=== PATIENT | male | born 1945 | race Two or more races ===

== ENCOUNTER 2016-09-24 16:25 | Inpatient (IN) | payer MEDICARE ==
[~2016-09-24] VITALS: Ht 195.6 cm; Wt 127.0 kg
--- NOTE | 2016-09-24 16:30 | NUR ---
pt [facility] to er bed 10. woke up today at 0830 c/o right sided weakness, slurring of speech. pt states he was doing ok yesterday. denies hx of stroke. hx of hypertension and diabetes. gowned and placed on monitor. stable vitals. awaiting md stokes.
--- NOTE | 2016-09-24 16:32 | NUR ---
iv line started blood araseli and sent to lab.
--- NOTE | 2016-09-24 16:34 | NUR ---
blood sugar 430. ermd aware.
--- NOTE | 2016-09-24 16:44 | NUR ---
dr luong a bedside for eval.
[2016-09-24] MEDS ORDERED: INSULIN REGULAR, HUMAN 100 UNIT/ML 10 ML VIAL ONE (16:56)
[2016-09-24] MEDS ORDERED: IV SET PRIMARY 1 EA INFUS.SET MC ONE ×2 (16:56→18:02)
[2016-09-24] MEDS ORDERED: IV NS 0.9% 1,000 ML ONE ×2 (16:56→18:02)
[2016-09-24] MEDS ORDERED: IV NS 0.9% 1,000 ML BAG IV ONE ×2 (17:00→18:00)
[2016-09-24] MEDS ORDERED: INSULIN REGULAR, HUMAN 100 UNIT/ML 10 ML VIAL IV ONE (17:00)
[2016-09-24 17:01] LABS: BASOPHILS % (AUTO) 0.3 % (0.0-2.0); EOSINOPHILS # (AUTO) 0.1 /CMM (0.0-0.7); EOSINOPHILS % (AUTO) 0.5 % (0.0-6.0); HEMATOCRIT 50 % (39-51); HEMOGLOBIN 16.9 g/dL (13.5-17.5); LYMPHOCYTES # (AUTO) 1.3 /CMM (0.8-4.8); LYMPHOCYTES % (AUTO) 10.9 % (20.0-44.0); MEAN CORPUSCULAR HEMOGLOBIN 29 PG (26.0-33.0); MEAN CORPUSCULAR HGB CONC 34 g/dl (31.0-36.0); MEAN CORPUSCULAR VOLUME 85 fL (80-96); MONOCYTES # (AUTO) 0.6 /CMM (0.1-1.30); MONOCYTES % (AUTO) 4.5 % (2.0-12.0); NEUTROPHILS # (AUTO) 10.3 /CMM (1.8-8.9); NEUTROPHILS % (AUTO) 83.8 % (43.0-81.0); PLATELET COUNT (AUTO) 313 /CMM (150-450); RDW COEFFICIENT OF VARIATION 12.5 (11.5-15.0); RED BLOOD CELL COUNT(AUTO) 5.89 MIL/uL (4.5-6.0); WHITE BLOOD COUNT (AUTO) 12.3 K/uL (4.3-11.0)
--- NOTE | 2016-09-24 17:14 | NUR ---
radiology at bedside for chest xray.
[2016-09-24 17:15] LABS: CALCIUM, SERUM 8.8 mg/dL (8.5-10.1); CARBON DIOXIDE 20 mmol/L (21-32); CHLORIDE 98 mmol/L (98-107); CREATININE 1.7 mg/dL (0.6-1.3); POTASSIUM 4.4 mmol/L (3.5-5.1); SODIUM SERUM 134 mmol/L (136-145); UREA NITROGEN, BLOOD 14 mg/dL (7-18)
[2016-09-24 17:19] LABS: GLUCOSE 472 mg/dL (74-106)
[2016-09-24 17:20] LABS: TROPONIN I < 0.017 ng/mL (0.00-0.056)
--- NOTE | 2016-09-24 17:30 | NUR ---
pt to radiology for head ct scan via [facility].
--- NOTE | 2016-09-24 17:41 | NUR ---
DR. CLARK WANTS TO WAIT FOR CT HEAD W/O RESULTS BEFORE GOING TO CTA BECAUSE OF PT'S HIGH CREATININE.
[2016-09-24 17:43] LABS: INR 0.96 (0.87-1.13); PROTHROMBIN TIME 10.2 SECS (9.5-12.7)
[2016-09-24] MEDS ORDERED: IV NS 0.9% 250 ML IV ONE (17:53)
[2016-09-24] MEDS ORDERED: IOHEXOL-350 100 ML VIAL IV ONE (17:54)
[2016-09-24] MEDS ORDERED: CT SWABBABLE VALVE TRANS SET 1 EA INFUS.SET MC ONE (17:54)
[2016-09-24] MEDS ORDERED: ASPIRIN 325 MG TABLET ONE (18:34)
--- NOTE | 2016-09-24 18:35 | NUR ---
aspirin 325 mg given po per ermd verbal order.
[2016-09-24] MEDS ORDERED: ASPIRIN 81 MG TAB.CHEW PO ONE (19:00)
[2016-09-24] MEDS ORDERED: ASPIRIN 300 MG/SUPP.RECT RC ONE (19:00)
--- NOTE | 2016-09-24 19:04 | NUR ---
YAMILA WATTS CATECHIST SALES PROMOTION DIRECTOR FOR [employer] MADE AWARE OF PT AND SPOKE WITH DR CLARK
[2016-09-24 19:45] LABS: APPEARANCE,URINE Clear (CLEAR); BILIRUBIN,URINE Negative (NEGATIVE); BLOOD, URINE Trace-lysed Ery/uL (NEGATIVE); COLOR,URINE Yellow (YELLOW); KETONES,URINE Trace (NEGATIVE); LEUKOCYTE ESTERASE ,URINE Small (NEGATIVE); NITRITE, URINE Negative (NEGATIVE); PH,URINE 5.5 (5.0-8.0); PROTEIN,URINE 100 mg/dl (NEGATIVE); UGLUCOSE 500 MG/DL mg/dL (NEGATIVE); UROBILINOGEN,URINE 0.2 EU/dL (0.2)
--- NOTE | 2016-09-24 19:50 | NUR ---
TELE 325-2
[2016-09-24] MEDS ORDERED: ZOLPIDEM TARTRATE 5 MG TABLET PO PRN (20:00)
[2016-09-24] MEDS ORDERED: DEXTROSE 50%-WATER 50 ML DISP.SYRIN IV PRN (20:00)
[2016-09-24 20:02] LABS: BACTERIA,URINE 2+ /HPF (None Seen); SQUAMOUS EPITHELIAL CELL,UR Few /HPF (None Seen)
--- NOTE | 2016-09-24 20:04 | NUR ---
report given to pallavi. pt awaiing transfer to floor.
--- NOTE | 2016-09-24 20:30 | NUR ---
APPLICATION COUNSELOR NOTES Admitted patient to the unit in no apparent distress. Patient is alert, oriented x4, able to make needs known. Patient noted to have right side weakness, noted with right facial paralysis.No SOB noted, breathing regular and non labored. No c/o pain at this time. Routine admission done. all needs attended Will continue to monitor.
[2016-09-24 21:00] VITALS: BP 159/92
[2016-09-24] MEDS ORDERED: BLOOD SUGAR DIAGNOSTIC 1 EACH STRIP IN SCH (22:00)
[2016-09-24] MEDS: BLOOD SUGAR DIAGNOSTIC 1 EACH STRIP VI SCH (22:00)
[2016-09-24] MEDS ORDERED: CEFTRIAXONE 1 G VIAL ONE (22:44)
[2016-09-24] MEDS ORDERED: SECONDARY IV SET 1 EA INFUS.SET MC ONE (22:45)
[2016-09-24] MEDS ORDERED: IV D5W 50 ML IV ONE (22:45)
[2016-09-24] MEDS ORDERED: ZOLPIDEM TARTRATE 5 MG TABLET ONE (23:46)
[2016-09-24] MEDS ORDERED: ATORVASTATIN 40 MG TABLET ONE (23:47)
[2016-09-24] MEDS ORDERED: IV SET PRIMARY PUMP SET 1 EA INFUS.SET MC ONE (23:52)
[2016-09-25] MEDS: IV NS 0.9% 1,000 ML IV SCH ×2 (00:03→14:53)
[2016-09-25] MEDS: HEPARIN SODIUM, PORCINE 5000 UNITS/1 ML VIAL SQ SCH ×3 (00:04→21:22)
[2016-09-25] MEDS: ATORVASTATIN 40 MG TABLET PO SCH ×2 (00:05→21:10)
[2016-09-25] MEDS: CEFTRIAXONE 1 G in IV D5W 50 ML IV SCH ×2 (00:16→21:10)
[2016-09-25] MEDS: *INSULIN REGULAR(HUMULIN R)HUM 100 UNIT/ML VIAL SQ PRN ×2 (00:54→21:17)
[2016-09-25 01:20] VITALS: BP 145/86
[2016-09-25 04:35] VITALS: BP 128/73
[2016-09-25] MEDS: BLOOD SUGAR DIAGNOSTIC 1 EACH STRIP IN SCH ×2 (06:00)
--- NOTE | 2016-09-25 06:17 | NUR ---
RN CLOSING NOTES Patient slept comfortably during shift, Repositioned as scheduled. Due meds given as ordered. Blood sugar checked done at 0600, 272 result, as DIRECTOR EXPORT aRfi order no need to call him. All needss attended. Will continue to monitor.
[2016-09-25 06:51] LABS: BASOPHILS % (AUTO) 0.2 % (0.0-2.0); EOSINOPHILS # (AUTO) 0.1 /CMM (0.0-0.7); EOSINOPHILS % (AUTO) 1.2 % (0.0-6.0); HEMATOCRIT 46 % (39-51); HEMOGLOBIN 15.9 g/dL (13.5-17.5); LYMPHOCYTES # (AUTO) 2.7 /CMM (0.8-4.8); LYMPHOCYTES % (AUTO) 23.9 % (20.0-44.0); MEAN CORPUSCULAR HEMOGLOBIN 29 PG (26.0-33.0); MEAN CORPUSCULAR HGB CONC 34 g/dl (31.0-36.0); MEAN CORPUSCULAR VOLUME 85 fL (80-96); MONOCYTES # (AUTO) 0.8 /CMM (0.1-1.30); MONOCYTES % (AUTO) 7.1 % (2.0-12.0); NEUTROPHILS # (AUTO) 7.7 /CMM (1.8-8.9); NEUTROPHILS % (AUTO) 67.6 % (43.0-81.0); PLATELET COUNT (AUTO) 284 /CMM (150-450); RDW COEFFICIENT OF VARIATION 12.6 (11.5-15.0); RED BLOOD CELL COUNT(AUTO) 5.48 MIL/uL (4.5-6.0); WHITE BLOOD COUNT (AUTO) 11.4 K/uL (4.3-11.0)
[2016-09-25 06:57] LABS: CALCIUM, SERUM 8.2 mg/dL (8.5-10.1); CARBON DIOXIDE 26 mmol/L (21-32); CHLORIDE 103 mmol/L (98-107); CREATININE 1.1 mg/dL (0.6-1.3); GLUCOSE 246 mg/dL (74-106); POTASSIUM 3.5 mmol/L (3.5-5.1); SODIUM SERUM 139 mmol/L (136-145); UREA NITROGEN, BLOOD 9 mg/dL (7-18)
[2016-09-25 06:58] LABS: INR 1.11 (0.87-1.13); PROTHROMBIN TIME 11.9 SECS (9.5-12.7)
--- NOTE | 2016-09-25 07:05 | NUR ---
RECEIVED PT IN BED, SLEEPING INTERMITTENTLY, A/OX4. PT HAS NO COMPLAINTS OF PAIN OR SIGNS OF DISTRESS. IV ON LFA PATENT AND INTACT. BED IS LOW AND LOCKED, SIDE RAILS UP X2 AND CALL LIGHT IS IN REACH. WILL CONTINUE TO MONITOR.
[2016-09-25 07:10] LABS: CHOLESTEROL 208 mg/dL (<200); HDL CHOLESTEROL 32 mg/dL (40-60); LDL 136 mg/dL (0-99); THYROID STIMULATING HORMONE 1.296 uIU/mL (0.358-3.74); TRIGLYCERIDES 251 mg/dL (30-150)
[2016-09-25 07:29] VITALS: BP 142/55
[2016-09-25 08:00] VITALS: BP 142/55
[2016-09-25] MEDS: BLOOD SUGAR DIAGNOSTIC 1 EACH STRIP VI SCH ×4 (08:10→21:09)
[2016-09-25] MEDS: ASPIRIN 325 MG TABLET PO SCH (08:20)
[2016-09-25] MEDS: PANTOPRAZOLE 40 MG TABLET.DR PO SCH (08:20)
[2016-09-25] MEDS: INSULIN REGULAR, HUMAN 100 UNIT/ML 3 ML VIAL SQ PRN ×3 (09:27→18:23)
[2016-09-25 10:53] LABS: ALBUMIN 3.3 g/dL (3.4-5.0); BILIRUBIN,DIRECT 0.1 mg/dL (0.0-0.2); BILIRUBIN,TOTAL 0.6 mg/dL (0.2-1.0); TOTAL PROTEIN, SERUM 6.6 g/dL (6.4-8.2)
--- NOTE | 2016-09-25 11:13 | NUR ---
WOUND CARE: PT NOT SEEN YET FOR SKIN ASSESSMENT DUE TO PT OFF UNIT AT THIS TIME.
--- NOTE | 2016-09-25 12:10 | NUR ---
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 DR. VALENTINE WAS NOTIFIED.
[2016-09-25 16:00] VITALS: BP 141/84
--- NOTE | 2016-09-25 16:04 | NUR ---
cooler room worker met with patient a bedside. Patient was cooperative and pleasant. Patient was oriented to time, place, self, and situation. Patient stated that he is homeless and lives in his van. cooler room worker asked patient if he wanted [facility] placement and patient refused chcf placement and stated that he would like to be discharged back to his van that is [address] on [address] between [place] and [facility]. Per patient he receives SSI ($800/month). Per patient, he is going to be leaving [place] soon and moving to the [facility]. Patient stated that he does not have any family and did not want to provide an emergency contact. Per patient, he has no hx of drug or alcohol abuse. Patient denied suicidal and homicidal ideations. Patient denied visual and auditory hallucinations. Per patient, he does not have a hx of psychiatric hospitalizations. cooler room worker informed patient that she was available if needed.
--- NOTE | 2016-09-25 16:09 | NUR ---
PER RD RECOMMENDATION, TO ADD CARDIAC DIET AND CHANGE CONTROL CARBS TO 75 G. PT HAD EPISODE OF [facility] X1, NOTIFIED DR. NUNO. ORDERED C-DIFF STOOL. WILL COLLECT.
--- NOTE | 2016-09-25 19:04 | NUR ---
PT IS IN SEMIFOWLERS POSITION IN BED, AWAKE. PT COMPLAINS OF NO PAIN AND SHOWS NO SIGNS OF DISTRESS. IV ON LFA RUNNING NS AT 75 ML/HR. ALL MEDS WERE GIVEN ORDERED. BED IS IN LOW AND LOCKED POSITION, SIDE RAILS UP X2, AND CALL LIGHT IS IN REACH. WILL ENDORSE TO BRANCH MECHANIC RN FOR CONTINUITY OF CARE.
--- NOTE | 2016-09-25 19:30 | NUR ---
RECEIVED PATIENT IN BED AWAKE, AO X 4, ABLE TO MAKE NEEDS KNOWN. NO ACUTE DISTRESS NOTED. DENIES ANY PAIN AT THIS TIME. NO SYMPTOMS OF HYPER/HYPOGLYCEMIA. RIGHT SIDED WEAKNESS NOTED. IV SITE PATENT, INTACT; IVF INFUSING ORDERED. ON LOW BED WITH BILATERAL UPPER SIDE RAILS UP. CALL LIGHT WITHIN EASY REACH. WILL CONTINUE TO MONITOR.
[2016-09-25 20:00] VITALS: BP_SYST 120; BP_SYST 142; BP_DIAS 68; BP_DIAS 74
[2016-09-26] MEDS ORDERED: HYDROCODONE/APAP 5/325MG 1 EACH TABLET ONE (00:26)
[2016-09-26] MEDS: HYDROCODONE/APAP 5/325MG 1 EACH TABLET PO PRN ×2 (00:31→21:02)
[2016-09-26] MEDS: IV NS 0.9% 1,000 ML IV SCH ×2 (04:52→21:03)
--- NOTE | 2016-09-26 06:05 | NUR ---
PATIENT SLEEP, EASILY AROUSABLE. RESPIRATIONS EVEN. NO SIGNS OF PAIN NOTED. DUE MEDS GIVEN WITH NO ASE NOTED. NEEDS ATTENDED. SAFETY PRECAUTIONS AND COMFORT MEASURES IN PLACE. WILL GIVE REPORT TO DAY SHIFT FOR CONTINUITY OF CARE.
[2016-09-26] MEDS: BLOOD SUGAR DIAGNOSTIC 1 EACH STRIP VI SCH ×4 (06:32→22:23)
[2016-09-26] MEDS: INSULIN REGULAR, HUMAN 100 UNIT/ML 3 ML VIAL SQ PRN ×2 (06:34→12:28)
[2016-09-26] MEDS: PANTOPRAZOLE 40 MG TABLET.DR PO SCH (06:36)
[2016-09-26 08:00] VITALS: BP 143/56
--- NOTE | 2016-09-26 08:00 | NUR ---
RN OPENING NOTES RECEIVED PATIENT IN BED AWAKE, AO X 4, ABLE TO MAKE NEEDS KNOWN. NO ACUTE DISTRESS NOTED. DENIES ANY PAIN AT THIS TIME. RIGHT SIDED WEAKNESS NOTED. IV SITE PATENT, INTACT; IVF INFUSING ORDERED. BED IN THE LOWEST POSITION WITH THE SIDE RAILS UP X2. SCD'S ON BILATERALLY. CALL LIGHT WITHIN REACH. WILL CONTINUE TO MONITOR.
[2016-09-26] MEDS: ASPIRIN 325 MG TABLET PO SCH (09:47)
[2016-09-26] MEDS: HEPARIN SODIUM, PORCINE 5000 UNITS/1 ML VIAL SQ SCH ×2 (09:48→21:03)
--- NOTE | 2016-09-26 11:10 | NUR ---
sex worker or escort met with patient at bedside. Patient is still refusing placement and stated that he wants to go back to his van. Patient wants to be discharged to [address] [place] [address] [address] [place] [address]. Via taxi. sex worker or escort provided patient with resources to homeless shelters, Showers and hot meals, and mental health services. Patient signed the homeless waiver form.
--- NOTE | 2016-09-26 12:30 | NUR ---
TRAPEZE PLACED ON PATIENT BED FOR BETTER INDEPENDENT MOBILITY IN BED. PATIENT RIGHT SIDE MOBILITY IMPROVING PER PHYSICAL THERAPIST.
[2016-09-26 16:00] VITALS: BP 115/73
[2016-09-26] MEDS: *INSULIN REGULAR(HUMULIN R)HUM 100 UNIT/ML VIAL SQ PRN ×2 (17:20→22:26)
--- NOTE | 2016-09-26 19:09 | NUR ---
per patient will need short term SNF placement for rehab. Spoke with patient, he would like to go to [facility] for short term where Cain Teixeira DNP can follow him. Faxed referral to [facility] [phone] . Addendum: 09/26/16 at 1909 by SHERRY STUART RN Amended: Links added.
[2016-09-26 20:00] VITALS: BP 134/83
--- NOTE | 2016-09-26 20:00 | NUR ---
RECEIVED PATIENT IN BED, ALERT AND ORIENTED X3, CALM, NO SOB, TOLERATING ROOM AIR, SP02 AT ROOM AIR 98%, NOT COMPLAINING OF PAIN AT THIS TIME, PER PATIENT WILL ASK FOR PAIN MEDICATION WHEN NEEDED. LUNG SOUNDS ARE CLEAR, ABDOMEN FIRM, ACTIVE BOWEL SOUNDS, LEFT FOREARM PERIPHERAL LINE IS PATENT AND INFUSING WELL, ABLE TO USE TRAPEZE FOR BED MOBILITY, WITH RIGHT SIDE WEAKNESS. NO DIFFICULTY SWALLOWING, UNABLE TO AMBULATE, BEDREST. REPOSITIONED FOR COMFORT. KEPT SAFE AND COMFORTABLE, CALL LIGHT WITHIN REACH.
[2016-09-26] MEDS: CEFTRIAXONE 1 G in IV D5W 50 ML IV SCH (22:22)
[2016-09-26] MEDS: ATORVASTATIN 40 MG TABLET PO SCH (22:22)
[2016-09-27] MEDS: BLOOD SUGAR DIAGNOSTIC 1 EACH STRIP VI SCH ×3 (06:20→16:58)
--- NOTE | 2016-09-27 06:30 | NUR ---
PATIENT IN BED, ALERT AND AWAKE, NO RESPIRATORY DISTRESS, NO COMPLAIN OF PAIN AT THIS TIME, WITH RIGHT SIDED WEAKNESS, NO ADVERSE CHANGE OF CONDITION DURING SHIFT, SLEPT FOR 5 HOURS. ALL DUE MEDICATIONS GIVEN, CALL LIGHT WITHIN REACH.
[2016-09-27] MEDS: INSULIN REGULAR, HUMAN 100 UNIT/ML 3 ML VIAL SQ PRN ×3 (06:32→16:57)
[2016-09-27 06:59] LABS: BASOPHILS # (AUTO) 0.1 /CMM (0.0-0.2); BASOPHILS % (AUTO) 0.6 % (0.0-2.0); EOSINOPHILS # (AUTO) 0.2 /CMM (0.0-0.7); EOSINOPHILS % (AUTO) 2.1 % (0.0-6.0); HEMATOCRIT 46 % (39-51); HEMOGLOBIN 15.6 g/dL (13.5-17.5); LYMPHOCYTES % (AUTO) 29.6 % (20.0-44.0); MEAN CORPUSCULAR HEMOGLOBIN 29 PG (26.0-33.0); MEAN CORPUSCULAR HGB CONC 34 g/dl (31.0-36.0); MEAN CORPUSCULAR VOLUME 85 fL (80-96); MONOCYTES # (AUTO) 0.7 /CMM (0.1-1.30); MONOCYTES % (AUTO) 6.5 % (2.0-12.0); NEUTROPHILS # (AUTO) 6.2 /CMM (1.8-8.9); NEUTROPHILS % (AUTO) 61.2 % (43.0-81.0); PLATELET COUNT (AUTO) 260 /CMM (150-450); RDW COEFFICIENT OF VARIATION 12.8 (11.5-15.0); RED BLOOD CELL COUNT(AUTO) 5.38 MIL/uL (4.5-6.0); WHITE BLOOD COUNT (AUTO) 10.2 K/uL (4.3-11.0)
[2016-09-27 07:35] LABS: CALCIUM, SERUM 8.4 mg/dL (8.5-10.1); CARBON DIOXIDE 23 mmol/L (21-32); CHLORIDE 104 mmol/L (98-107); CREATININE 1.1 mg/dL (0.6-1.3); GLUCOSE 262 mg/dL (74-106); MAGNESIUM 1.5 mg/dL (1.8-2.4); PHOSPHORUS 3.5 mg/dL (2.5-4.9); POTASSIUM 4.1 mmol/L (3.5-5.1); SODIUM SERUM 138 mmol/L (136-145); UREA NITROGEN, BLOOD 14 mg/dL (7-18)
[2016-09-27 08:00] VITALS: BP 114/81
[2016-09-27] MEDS: ASPIRIN 325 MG TABLET PO SCH (08:07)
[2016-09-27] MEDS: PANTOPRAZOLE 40 MG TABLET.DR PO SCH (08:07)
[2016-09-27] MEDS: HEPARIN SODIUM, PORCINE 5000 UNITS/1 ML VIAL SQ SCH (08:08)
--- NOTE | 2016-09-27 08:46 | NUR ---
MS RN INITIAL NOTES REPORT RECEIVED AT THE BEDSIDE. PATIENT IS SLEEPING. NO SOB OR DISTRESS NOTED AT THIS TIME. PATIENT DOES NOT APPEAR TO BE IN PAIN, NO FACIAL GRIMACE NOTED. BED IN LOW POSITION, CALL LIGHT WITHIN PATIENT REACH. WILL CONTINUE TO MONITOR.
[2016-09-27] MEDS: HYDROCODONE/APAP 5/325MG 1 EACH TABLET PO PRN (09:53)
[2016-09-27] MEDS: Magnesium 1GM/D5W 100ML PREMIX 100 ML IV SCH ×2 (10:16→11:29)
[2016-09-27] MEDS: IV NS 0.9% 1,000 ML IV SCH ×2 (10:17→14:40)
[2016-09-27] MEDS ORDERED: LISINOPRIL (5MG) 5 MG TABLET PO SCH (11:00)
[2016-09-27] MEDS ORDERED: INSU100C10 SQ (14:49)
[2016-09-27] MEDS ORDERED: INSU100I19 SQ (14:49)
[2016-09-27] MEDS ORDERED: LISI5TAB45 PO (14:49)
[2016-09-27] MEDS ORDERED: ASPI325T2 PO (14:49)
[2016-09-27] MEDS ORDERED: ATOR40TA PO (14:49)
[2016-09-27 16:00] VITALS: BP 121/66
--- NOTE | 2016-09-27 18:56 | NUR ---
MS SBA UNDERWRITER NOTES DISCHARGE INSTRUCTIONS GIVEN TO PATIENT AND ABLE TO UNDERSTAND. NO SOB OR DISTRESS NOTED AT THIS TIME. PATIENT DENIES PAIN. ALL PAPERWORK SIGNED AND BELONGINGS ACCOUNTED FOR. IV DISCONNECTED AND PRESSURE APPLIED. NO BLEEDING NOTED AT THE SITE. PATIENT DISCHARGED TO [facility]. REPORT CALLED TO [facility]. PATIENT LEFT IN STABLE CONDITION, VIA [facility] WITH TWO DAIRY FARM MANAGER.
== END 2016-09-27 18:00 | DRG 64 ==
LOC: ER 16:27 → TELE 19:55 → MED 09-25 11:00
PROVIDERS: ADMIT Nurse Practitioner Acute Care; ATTEND Nurse Practitioner Acute Care
DX: I63.212 Cerebral infarction due to unspecified occlusion or stenosis of left vertebral artery (principal); N17.0 Acute kidney failure with tubular necrosis; G81.91 Hemiplegia, unspecified affecting right dominant side; N39.0 Urinary tract infection, site not specified; I45.2 Bifascicular block; I63.22 Cerebral infarction due to unspecified occlusion or stenosis of basilar artery; E11.21 Type 2 diabetes mellitus with diabetic nephropathy; E78.5 Hyperlipidemia, unspecified; I10 Essential (primary) hypertension; Z86.73 Personal history of transient ischemic attack (TIA), and cerebral infarction without residual deficits; Z87.891 Personal history of nicotine dependence; E66.9 Obesity, unspecified; E11.65 Type 2 diabetes mellitus with hyperglycemia; F15.10 Other stimulant abuse, uncomplicated; Z59.0 Homelessness; J32.0 Chronic maxillary sinusitis; Z68.33 Body mass index [BMI] 33.0-33.9, adult; Z91.14 Patient's other noncompliance with medication regimen; G46.5 Pure motor lacunar syndrome; R29.810 Facial weakness
CPT/HCPCS: 36415; 70200-TC; 70450-TC; 70496-TC; 70498-TC; 71010-TC; 80048-TC; 80061-TC; 80076-TC; 80305; 81000-TC; 82010-TC; 82962-TC; 83735-TC; 83880; 84100-TC; 84443-TC; 84484-TC; 85025-TC; 85652-TC; 85730-TC; 86592; 87081-TC; 87086-TC; 93307-TC; 93880-TC; 97001-TC; 97110-TC; 97530-TC; J0696; J1644; J1815; J3475; J7030; J7050; J7060; Q9967